=== PATIENT | male | born 1975 | race African-American/Black ===

== ENCOUNTER 2016-05-01 15:49 | Emergency (ER) | payer OTHER ==
[~2016-05-01] VITALS: Ht 182.9 cm; Wt 58.7 kg
[2016-05-01 15:53] VITALS: TEMP 36.8; Ht 182.9 cm; Wt 58.7 kg
[2016-05-01] MEDS ORDERED: XYLOCAINE 1%/SOD BICARB 20 ML VIAL INFIL ONE (16:15)
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
[2016-05-01 18:47] VITALS: BP 122/80; PULSE 68; O2SAT 99
== END 2016-05-01 18:40 | disposition home or self-care (01) ==
LOC: EDBD 15:49 → C.EDA 15:52
DX: S51.812A Laceration without foreign body of left forearm, initial encounter (principal); S50.812A Abrasion of left forearm, initial encounter; V58.5XXA Driver of pick-up truck or van injured in noncollision transport accident in traffic accident, initial encounter; Y92.488 Other paved roadways as the place of occurrence of the external cause; R93.7 Abnormal findings on diagnostic imaging of other parts of musculoskeletal system